=== PATIENT | female | born 1945 | race Caucasian/White ===

== ENCOUNTER → 2021-04-16 | Day surgery (SDC) | payer MEDICARE, OTHER ==
[~2021-04-16] VITALS: Ht 165.1 cm; Wt 52.2 kg
[~2021-04-16] MED LIST: ASPIRIN EC81 MG PO; LEVOTHYROXINE75 MC1 PO; OMEPRAZOLE40 MG PO; OS-CAL500 MG PO; VITAMIN B122500 MCG PO; WEIGHT LOSS PO
== END | disposition home or self-care (01) ==
LOC: FAS 07:10
DX: Z12.11 Encounter for screening for malignant neoplasm of colon (principal); K63.89 Other specified diseases of intestine; K63.5 Polyp of colon; K31.7 Polyp of stomach and duodenum; K21.00 Gastro-esophageal reflux disease with esophagitis, without bleeding; K59.09 Other constipation; J45.909 Unspecified asthma, uncomplicated; E03.9 Hypothyroidism, unspecified; M19.90 Unspecified osteoarthritis, unspecified site; E78.5 Hyperlipidemia, unspecified; Z79.82 Long term (current) use of aspirin; Z79.899 Other long term (current) drug therapy; Z80.8 Family history of malignant neoplasm of other organs or systems; Z80.9 Family history of malignant neoplasm, unspecified
CPT/HCPCS: J2704; J7120

== ENCOUNTER 2021-10-15 10:23 | Emergency (ER) | payer MEDICARE, OTHER ==
[2021-10-15 11:22] LABS: BILIRUBIN NEGATIVE (NEGATIVE); BLOOD NEGATIVE Ery/uL (NEGATIVE); CLARITY CLEAR (CLEAR); COLOR YELLOW (YELLOW); GLUCOSE (U) NORMAL (NORMAL); LEUKOCYTES NEGATIVE Leu/uL (NEGATIVE); NITRITE NEGATIVE (NEGATIVE); PROTEIN NEGATIVE (NEGATIVE); SPECIFIC GRAVITY <=1.005 (1.001-1.030); UROBILINOGEN 0.2 mg/dL (0.2-1.0)
[2021-10-15 11:26] LABS: BACTERIA TRACE; URINARY WBC RARE
[2021-10-15 11:55] LABS: BASOPHIL 0.7 % (0-2); EOSINOPHIL 2.6 % (0-7); HGB 13.7 g/dl (12.5-16.0); LYMPHOCYTE 21.1 % (15-48); MCH 31.8 pg (25.0-31.0); MCHC 33.4 g/dL (32.0-36.0); MCV 95.1 fL (78.0-100.0); MPV 10.5 fL (6.0-9.5); NEUTROPHIL 68.5 % (41-80); NRBC 0; PLT 259 K/uL (150-400); RBC 4.31 M/uL (4.20-5.40); RDW 12.1 % (11.5-14.0); WBC 7.1 K/uL (4.0-10.5)
[2021-10-15 12:25] LABS: ALBUMIN 3.6 g/dL (3.4-5.0); BILIRUBIN - TOTAL 0.3 mg/dL (0.2-1.0); BUN/CREAT RATIO (CALC) 11.2 RATIO; CREATININE 0.8 mg/dL (0.51-0.95); GLOBULIN (CALCULATION) 2.8 g/dL; POTASSIUM 3.9 mmol/L (3.5-5.1); TOTAL PROTEIN 6.4 g/dL (6.4-8.2)
[2021-10-15] MEDS ORDERED: NORCO 5-325 TA1 EACH PO (15:22)
== END 2021-10-15 15:42 | disposition home or self-care (01) ==
LOC: FER 10:23
PROVIDERS: Emergency Medicine
DX: M54.16 Radiculopathy, lumbar region (principal)
CPT/HCPCS: 36415; 80053; 81001; 83690; 84145; 85025; Q9967